=== PATIENT | male | born 1990 ===

== ENCOUNTER 2017-01-02 00:14 | Emergency (ER) | payer OTHER ==
[2017-01-02 00:33] VITALS: BMI 38.7
[2017-01-02 00:36] VITALS: BP 138/69; PULSE 93; RESP 16; TEMP 98.9; O2SAT 96
[2017-01-02] MEDS ORDERED: TDAP Vaccine 0.5 mL Syr IM ONE (01:11)
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
== END 2017-01-02 02:33 | disposition home or self-care (01) ==
LOC: H.ER 00:14
DX: S69.92XA Unspecified injury of left wrist, hand and finger(s), initial encounter (principal); S00.511A Abrasion of lip, initial encounter; Y04.0XXA Assault by unarmed brawl or fight, initial encounter; Y99.0 Civilian activity done for income or pay